=== PATIENT | female | born 1960 | race Hispanic/Latino ===

== ENCOUNTER 2016-11-11 23:30 | Emergency (ER) | payer MEDICAID ==
[2016-11-11 23:30] VITALS: BMI 24.3
[2016-11-12 00:14] VITALS: RESP 16; TEMP 97.9
--- NOTE | 2016-11-12 00:51 | ED PDOC ---
Arrival/HPI - General Chief Complaint: Weakness/Neurological Deficit Time Seen by Provider: 11/12/16 00:26 Historian: Patient - History of Present Illness Narrative History of Present Illness (Text): 11/12/16 00:50 Raya Graff is a 56 year old female, whose past medical history includes gastric ulcers, who presents to the Emergency department complaining of paresthesias to right thigh and a few finger of her left hand for 1 hour. Patient denies any fever, chills, chest pain, shortness of breath, nausea, vomiting, diarrhea, neck pain, headache, dizziness, focal weakness, vision changes, or any other complaints. Symptom Onset: Gradual Symptom Course: Unchanged Activities at Onset: Light Context: Home Past Medical History - Provider Review Nursing Documentation Reviewed: Yes - Tetanus Immunization Tetanus Immunization: Unknown - Past Medical History Past Medical History: No Previous - Gastrointestinal Hx Gastrointestinal Ulcer: Yes Other/Comment: bleeding ulcer - Psychiatric Hx Substance Use: No - Past Surgical History Past Surgical History: No Previous - Anesthesia Hx Anesthesia Reactions: No Hx Malignant Hyperthermia: No - Suicidal Assessment Feels Threatened In Home Enviroment: No Family/Social History - Physician Review Nursing Documentation Reviewed: Yes Family/Social History: Unknown Family HX Smoking Status: Heavy Smoker > 10 Cigarettes Daily Hx Alcohol Use: Yes Frequency of alcohol use: Socially Hx Substance Use: No Hx Substance Use Treatment: No Allergies/Home Meds Allergies/Adverse Reactions: Allergies No Known Allergies Allergy (Verified 02/21/14 19:16) Home Medications: Home Meds Medication Instructions Recorded Confirmed No Known Home Med 11/12/16 11/12/16 Review of Systems - Physician Review All systems were reviewed & negative as marked: Yes - Review of Systems Constitutional: Normal. absent: Fevers Eyes: Normal ENT: Normal Respiratory: Normal. absent: SOB, Cough Cardiovascular: Normal. absent: Chest Pain Gastrointestinal: Normal. absent: Abdominal Pain, Diarrhea, Nausea, Vomiting Genitourinary Female: Normal. absent: Dysuria, Frequency, Hematuria, Urine Output Changes Musculoskeletal: Normal. absent: Back Pain, Neck Pain Skin: Normal. absent: Rash Neurological: Other (+paresthesias). absent: Headache, Dizziness Endocrine: Normal Hemo/Lymphatic: Normal Psychiatric: Normal Physical Exam Vital Signs Reviewed: Yes Vital Signs Temp Pulse Resp BP Pulse Ox 11/12/16 03:10 72 16 110/87 98 11/12/16 00:13 97.9 F 74 16 105/56 L 97 Temperature: Afebrile Blood Pressure: Normal Pulse: Regular Respiratory Rate: Normal Appearance: Positive for: Well-Appearing, Non-Toxic, Comfortable Pain Distress: None Mental Status: Positive for: Alert and Oriented X 3 - Systems Exam Head: Present: Atraumatic, Normocephalic Pupils: Present: PERRL Extroacular Muscles: Present: EOMI Conjunctiva: Present: Normal Mouth: Present: Moist Mucous Membranes Neck: Present: Normal Range of Motion Respiratory/Chest: Present: Clear to Auscultation, Good Air Exchange. No: Respiratory Distress, Accessory Muscle Use Cardiovascular: Present: Regular Rate and Rhythm, Normal S1, S2. No: Murmurs Abdomen: Present: Normal Bowel Sounds. No: Tenderness, Distention, Peritoneal Signs Back: Present: Normal Inspection Upper Extremity: Present: Normal Inspection. No: Cyanosis, Edema Lower Extremity: Present: Normal Inspection, NORMAL PULSES, Normal ROM, Neurovascularly Intact, Capillary Refill < 2 s. No: Edema, Jose Francisco's Sign, Tenderness, Swelling, Erythema, Deformity Neurological: Present: GCS=15, CN II-XII Intact, Speech Normal, Motor Func Grossly Intact, Normal Sensory Function, Normal Cerebellar Funct, Gait Normal, Memory Normal Skin: Present: Warm, Dry, Normal Color. No: Rashes Psychiatric: Present: Alert, Oriented x 3, Normal Insight, Normal Concentration Medical Decision Making ED Course and Treatment: 11/12/16 00:50 Impression: 56 year old female complaining of paresthesias to the right thigh and left hand. Differential Diagnosis included but are not limited to: Plan: -- CT Head w/o contrast -- EKG -- Labs, cardiac enzymes -- Reassess and disposition Progress Notes: reviewed EKG, sinus bradycardia at [address]-segment elevations or depressions, no T-wave inversions, normal intervals. 11/12/16 02:00 Reviewed radiology, CT Head shows: Brain: No intracranial hemorrhage. No mass. No definite edema. Ventricles: No hydrocephalus. Bones/joints: No acute fracture. Soft tissues: Unremarkable. Sinuses: No acute sinusitis. Mastoid air cells: No mastoid effusion. Orbits: Unremarkable as visualized. IMPRESSION: 1. No definite acute intracranial abnormality. Acute infarction may be CT occult within first 24 hours. If a focal deficit persists, consider followup CT or MRI for further evaluation. - Lab Interpretations Lab Results: 11/12/16 01:30 11/12/16 01:30 Lab Results 11/12/16 01:30: WBC 6.6, RBC 3.68, Hgb 11.9 L, Hct 34.9 L, MCV 94.8, MCH 32.3, MCHC 34.1, RDW 13.4, Plt Count 127, MPV 11.4 H 11/12/16 01:30: Sodium 139, Potassium 4.1, Chloride 104, Carbon Dioxide 29, Anion Gap 10, BUN 17, Creatinine 1.1, Est GFR ( Amer) > 60, Est GFR (Non- Af Amer) 52, Random Glucose 93, Calcium 8.9, Total Bilirubin 0.3, AST 28, ALT 25 , Alkaline Phosphatase 59, Lactate Dehydrogenase 458, Total Creatine Kinase 83, Troponin I < 0.01, Total Protein 6.7, Albumin 4.0, Globulin 2.7, Albumin/ Globulin Ratio 1.5 11/12/16 01:30: PT 10.3, INR 0.95, APTT 25.7 I have reviewed the lab results: Yes - RAD Interpretation Radiology Orders: 11/12/16 00:50 HEAD W/O CONTRAST [CT] Stat Equalizing Saw Operator: Radiologist - EKG Interpretation Interpreted by ED Physician: Yes Type: 12 lead EKG - Medication Orders Current Medication Orders: Discontinued Medications Ibuprofen (Motrin Tab) 600 mg PO STAT STA Stop: 11/12/16 02:59 Last Admin: 11/12/16 03:09 Dose: 600 mg MAR Pain/Vitals Document 11/12/16 03:09 MS (Rec: 11/12/16 03:10 MS [id number]) Pain Reassessment Is This A Pain ReAssessment? Yes Sleep Is patient sleeping during reassessment? No Presence of Pain Presence of Pain Yes Pain Scale Used Pain Scale Used Numeric Location Pain Location Body Occupational Health Specialist - Scribe Statement The provider has reviewed the documentation as recorded by the Edinson Forbes Provider Scribe Attestation: All medical record entries made by the Scribe were at my direction and personally dictated by me. I have reviewed the chart and agree that the record accurately reflects my personal performance of the history, physical exam, medical decision making, and the department course for this patient. I have also personally directed, reviewed, and agree with the discharge instructions and disposition. Disposition/Present on Arrival - Present on Arrival Any Indicators Present on Arrival: No History of DVT/PE: No History of Uncontrolled Diabetes: No Urinary Catheter: No History of Decub. Ulcer: No History Surgical Site Infection Following: None - Disposition Have Diagnosis and Disposition been Completed?: Yes Diagnosis: Paresthesia Disposition: HOME/ ROUTINE Disposition Time: 02:53 Patient Plan: Discharge Condition: GOOD Discharge Instructions (ExitCare): Paresthesia (ED) Additional Instructions: Follow up with your doctor /neurologist this week Referrals: Marino Almeida MD [Staff Provider] - Follow up with primary Forms: [employer] (Mauritian)
[2016-11-12 01:53] LABS: ALB/GLOB RATIO 1.5 (1.1-1.8); ALKALINE PHOSPHATASE 59 U/L (38-126); ALT/SGPT 25 U/L (7-56); AST/SGOT 28 U/L (14-36); BILIRUBIN,TOTAL 0.3 mg/dL (0.2-1.3); BLOOD UREA NITROGEN 17 mg/dL (7-21); CALCIUM 8.9 mg/dL (8.4-10.5); CARBON DIOXIDE 29 mmol/L (21-33); CHLORIDE 104 mmol/L (98-107); GFR AFRICAN-AMERICAN > 60; GLUCOSE,RANDOM 93 mg/dL (70-110); POTASSIUM 4.1 mmol/L (3.6-5.0); SODIUM 139 mmol/L (132-148); TOTAL PROTEIN 6.7 g/dL (5.8-8.3)
[2016-11-12 01:54] LABS: HEMATOCRIT 34.9 % (36.0-48.0); MEAN CELL VOLUME 94.8 fl (80.0-105.0); MEAN CORPUSCULAR HEMOGLOBIN 32.3 pg (25.0-35.0); MEAN CORPUSCULAR HGB CONC 34.1 g/dl (31.0-37.0); MEAN PLATELET VOLUME 11.4 fl (7.0-11.0); RED CELL DISTRIBUTION WIDTH 13.4 % (11.5-14.5); WHITE BLOOD COUNT 6.6 10^3/ul (4.5-11.0)
--- NOTE | 2016-11-12 01:58 | CT ---
EXAM: CT Head Without Intravenous Contrast CLINICAL HISTORY: 56 years old, female; Signs and symptoms; Weakness, extremity; Additional info: Paresthesias TECHNIQUE: Axial computed tomography images of the head/brain without intravenous contrast. All CT scans at this facility use one or more dose reduction techniques, viz.: automated exposure control; ma/kV adjustment per patient size (including targeted exams where dose is matched to indication; i.e. head); or iterative reconstruction technique. COMPARISON: No relevant prior studies available. FINDINGS: Brain: No intracranial hemorrhage. No mass. No definite edema. Ventricles: No hydrocephalus. Bones/joints: No acute fracture. Soft tissues: Unremarkable. Sinuses: No acute sinusitis. Mastoid air cells: No mastoid effusion. Orbits: Unremarkable as visualized. IMPRESSION: 1. No definite acute intracranial abnormality. Acute infarction may be CT occult within first 24 hours. If a focal deficit persists, consider followup CT or MRI for further evaluation.
[2016-11-12 02:00] LABS: INR 0.95 (0.93-1.08); PARTIAL THROMBOPLASTIN TIME 25.7 Seconds (23.7-30.8)
[2016-11-12 02:05] LABS: TROPONIN I < 0.01 ng/mL
[2016-11-12 03:15] VITALS: BP 110/87; PULSE 72; O2SAT 98
--- NOTE | 2016-11-12 09:18 | CARD ---
APPROVED REPORT EKG Measurement Heart [id number] <Conclusion> Sinus bradycardia Otherwise normal ECG
== END 2016-11-12 03:10 | disposition home or self-care (01) ==
LOC: ED 23:30
DX: R20.9 Unspecified disturbances of skin sensation (principal)

== ENCOUNTER 2017-11-23 13:07 | Observation (INO) | payer MEDICAID ==
[2017-11-23] MEDS ORDERED: Sodium Chloride 0.9% 1,000 ML IV STA (14:07)
--- NOTE | 2017-11-23 14:37 | ED PDOC ---
Arrival/HPI - General Chief Complaint: GI Problem Time Seen by Provider: 11/23/17 13:54 Historian: Patient - History of Present Illness Narrative History of Present Illness (Text): 11/23/17 14:33 57 year old female, whose past medical history includes gastric ulcers, who presents to the Emergency department complaining of multiple episodes of diarrhea. The last few episodes contained bright red blood. Patient notes when she uses the bathroom, she experiences lower abdominal cramps. Patient also notes associated lightheadedness. Patient denies any fevers, chills, chest pain, shortness of breath, nausea, vomiting, back pain, neck pain, urinary symptoms, headache, dizziness, or any other complaint. PMD: none Dental Technician Apprentice: none Symptom Onset: Gradual Symptom Course: Unchanged Activities at Onset: Light Context: Home Past Medical History - Provider Review Nursing Documentation Reviewed: Yes - Infectious Disease Hx of Infectious Diseases: None - Tetanus Immunization Tetanus Immunization: Unknown - Reproductive Menopause: Yes - Past Medical History Past Medical History: No Previous - Cardiac Hx Cardiac Disorders: No - HEENT Hx HEENT Disorder: No - Gastrointestinal Hx Gastrointestinal Ulcer: Yes Other/Comment: bleeding ulcer - Psychiatric Hx Substance Use: No - Past Surgical History Past Surgical History: No Previous - Anesthesia Hx Anesthesia Reactions: No Hx Malignant Hyperthermia: No - Suicidal Assessment Feels Threatened In Home Enviroment: No Family/Social History - Physician Review Nursing Documentation Reviewed: Yes Family/Social History: Unknown Family HX Smoking Status: Heavy Smoker > 10 Cigarettes Daily Hx Alcohol Use: Yes Hx Substance Use: No Hx Substance Use Treatment: No Allergies/Home Meds Allergies/Adverse Reactions: Allergies No Known Allergies Allergy (Verified 02/21/14 19:16) Home Medications: Home Meds Medication Instructions Recorded Confirmed No Known Home Med 11/12/16 11/23/17 Review of Systems - Physician Review All systems were reviewed & negative as marked: Yes - Review of Systems Constitutional: Normal Eyes: Normal ENT: Normal Respiratory: Normal. absent: SOB, Cough Cardiovascular: Normal. absent: Chest Pain Gastrointestinal: Abdominal Pain (lower abdominal cramps), Diarrhea. absent: Nausea, Vomiting Genitourinary Female: Normal. absent: Dysuria, Frequency Musculoskeletal: Normal. absent: Back Pain, Neck Pain Skin: Normal. absent: Rash Neurological: Normal. absent: Headache, Dizziness Endocrine: Normal Hemo/Lymphatic: Normal Psychiatric: Normal Physical Exam Vital Signs Reviewed: Yes Vital Signs Temp Pulse Resp BP Pulse Ox 11/23/17 13:47 98 F 73 18 105/70 99 Temperature: Afebrile Blood Pressure: Normal Pulse: Regular Respiratory Rate: Normal Appearance: Positive for: Well-Appearing, Non-Toxic, Comfortable Pain Distress: None Mental Status: Positive for: Alert and Oriented X 3 - Systems Exam Head: Present: Atraumatic, Normocephalic Pupils: Present: PERRL Extroacular Muscles: Present: EOMI Conjunctiva: Present: Normal Mouth: Present: Moist Mucous Membranes Neck: Present: Normal Range of Motion Respiratory/Chest: Present: Clear to Auscultation, Good Air Exchange. No: Respiratory Distress, Accessory Muscle Use Cardiovascular: Present: Regular Rate and Rhythm, Normal S1, S2. No: Murmurs Abdomen: No: Tenderness, Distention, Peritoneal Signs Back: Present: Normal Inspection Upper Extremity: Present: Normal Inspection. No: Cyanosis, Edema Lower Extremity: Present: Normal Inspection. No: Edema Neurological: Present: GCS=15, CN II-XII Intact, Speech Normal Skin: Present: Warm, Dry, Normal Color. No: Rashes Psychiatric: Present: Alert, Oriented x 3, Normal Insight, Normal Concentration Medical Decision Making ED Course and Treatment: 11/23/17 14:38 Impression: 57 year old female presents to the emergency department complaining of multiple episodes of blood diarrhea r/o GI bleed Plan: -- Labs -- Protonix -- Sodium Chloride -- UA -- Reassess and disposition Progress Notes: Rectal exam performed, chaperoned by Darci, results showed positive coag. Rectal exam was normal. 11/23/17 16:14 Patient had 4 episodes of bloody stool in the ED. Still lightheaded. Spoke with Dr. Lay, who will admit pt to hospitalist. Dr. Campos on consult for GI. - Medication Orders Current Medication Orders: Sodium Chloride (Sodium Chloride 0.9%) 1,000 mls @ 1,000 mls/hr IV .Q1H STA Stop: 11/23/17 15:06 Discontinued Medications Pantoprazole Sodium (Protonix Inj) 40 mg IVP STAT STA Stop: 11/23/17 14:08 - Scribe Statement The provider has reviewed the documentation as recorded by the Scribe Mago Sanderlin All medical record entries made by the Scribe were at my direction and personally dictated by me. I have reviewed the chart and agree that the record accurately reflects my personal performance of the history, physical exam, medical decision making, and the department course for this patient. I have also personally directed, reviewed, and agree with the discharge instructions and disposition. Disposition/Present on Arrival - Present on Arrival Any Indicators Present on Arrival: No History of DVT/PE: No History of Uncontrolled Diabetes: No Urinary Catheter: No History of Decub. Ulcer: No History Surgical Site Infection Following: None - Disposition Have Diagnosis and Disposition been Completed?: Yes Diagnosis: GI bleed Disposition: HOSPITALIZED Disposition Time: 16:10 Patient Plan: Observation Condition: FAIR
[2017-11-23 14:46] LABS: URINE APPEARANCE CLEAR (CLEAR); URINE BILIRUBIN NEGATIVE (NEGATIVE); URINE COLOR YELLOW (YELLOW); URINE GLUCOSE (UA) NEGATIVE (NEGATIVE)
[2017-11-23 14:47] LABS: URINE BLOOD NEGATIVE (NEGATIVE); URINE LEUKOCYTE ESTERASE NEGATIVE Leu/uL (NEGATIVE); URINE PROTEIN NEGATIVE mg/dL (<30 mg/dL); URINE UROBILINOGEN 0.2 E.U./dL (<1 E.U./dL)
[2017-11-23 15:00] LABS: BASO % 0.3 % (0.0-3.0); EOS # 0.1 (0.0-0.7); EOS % 1.5 % (1.5-5.0); GRAN # 6.11 (1.4-6.5); GRAN % 63.4 % (50.0-68.0); HEMOGLOBIN 13.5 g/dL (12.0-16.0); LYMPH # 2.4 (1.2-3.4); LYMPH % 24.6 % (22.0-35.0); MEAN CELL VOLUME 93.2 fl (80.0-105.0); MEAN CORPUSCULAR HEMOGLOBIN 31.8 pg (25.0-35.0); MEAN CORPUSCULAR HGB CONC 34.2 g/dl (31.0-37.0); MEAN PLATELET VOLUME 10.9 fl (7.0-11.0); MONO % 10.2 % (1.0-6.0); RBC 4.24 10^6/uL (3.5-6.1); RED CELL DISTRIBUTION WIDTH 13.4 % (11.5-14.5); WHITE BLOOD COUNT 9.6 10^3/ul (4.5-11.0)
[2017-11-23 15:01] LABS: BASO # 0.03 K/mm3 (0.0-2.0)
[2017-11-23 15:04] LABS: INR 0.94; PROTHROMBIN TIME 10.7 SECONDS (9.4-12.5)
[2017-11-23 15:05] LABS: ALB/GLOB RATIO 1.4 (1.1-1.8); ALBUMIN 4.6 g/dL (3.0-4.8); BLOOD UREA NITROGEN 15 mg/dL (7-21); GFR NON-AFRICAN AMERICAN > 60; LIPASE 104 U/L (23-300)
[2017-11-23 15:10] LABS: ALT/SGPT 19 U/L (7-56); AST/SGOT 24 U/L (14-36)
--- NOTE | 2017-11-23 16:21 | CP.PCM.HP ---
History of Present Illness - History of Present Illness History of Present Illness: PGY-2 H&P medicine note for Dr Lay Mrs Graff is a 57 year old female with a PMHx of signoid ulcer (2010), diverticulitis, internal hemorrhoids who presented to our ED because she had 4 episodes of bloody stool beginning this morning. She stated she woke up this morning with lower abdominal pain and went to the bathroom, had a bowel movement (no straining), and noticed blood in the toilet bowel which was bright red. She had 3 more similar instances of this. She denies taking NSAIDs chronically however she stated she took 3 aspirin yesterday as she had a ear ache. She went to a democrat last night but it was nothing out of the ordinary. She denied lightheadedness, nausea, hematemesis, chest pain. She denied weight loss - in fact she stated she has gained some weight recently. PMD: Cisco Dias (has not seen him yet) PMHx: signoid ulcer (2010), diverticulitis, internal hemorrhoids PSHx: sigmoidoscopy 2010 All: NKA Home Meds: none SocialHx: 25 pack year smoking hx - current smoker, social alcohol drinkers, marijuana use occasional FamHx: Sister from pancreatic cancer Present on Admission - Present on Admission Any Indicators Present on Admission: No Review of Systems - Constitutional Constitutional: absent: Chills, Fever - EENT Eyes: absent: Change in Vision - Cardiovascular Cardiovascular: absent: Chest Pain - Respiratory Respiratory: absent: Dyspnea, Hemoptysis - Gastrointestinal Gastrointestinal: Abdominal Pain, Hematochezia. absent: Bloating, Diarrhea, Dysphagia, Excessive Flatus, Heartburn, Hematemesis - Genitourinary Genitourinary: absent: Dysuria - Musculoskeletal Musculoskeletal: absent: Back Pain - Integumentary Integumentary: absent: Bleeding Lesions Past Patient History - Infectious Disease Hx of Infectious Diseases: None - Tetanus Immunizations Tetanus Immunization: Unknown - Past Social History Smoking Status: Heavy Smoker > 10 Cigarettes Daily - CARDIAC Hx Cardiac Disorders: No - HEENT Hx HEENT Problems: No - GASTROINTESTINAL Other/Comment: bleeding ulcer - PSYCHIATRIC Hx Substance Use: No - ANESTHESIA Hx Anesthesia Reactions: No Hx Malignant Hyperthermia: No Meds Allergies/Adverse Reactions: Allergies Allergy/AdvReac Type Severity Reaction Status Date / Time No Known Allergies Allergy Verified 02/21/14 19:16 Physical Exam - Constitutional Appears: Well, No Acute Distress - Head Exam Head Exam: ATRAUMATIC, NORMAL INSPECTION - Eye Exam Eye Exam: EOMI, Normal appearance, PERRL. absent: Scleral icterus - ENT Exam ENT Exam: Mucous Membranes Moist - Neck Exam Neck exam: Positive for: Normal Inspection - Respiratory Exam Respiratory Exam: Clear to Auscultation Bilateral, NORMAL BREATHING PATTERN. absent: Rales, Rhonchi, Wheezes - Cardiovascular Exam Cardiovascular Exam: REGULAR RHYTHM, +S1, +S2. absent: Tachycardia, JVD, Systolic Murmur - GI/Abdominal Exam GI & Abdominal Exam: Normal Bowel Sounds, Soft, Tenderness. absent: Distended, Firm, Guarding, Hernia Additional comments: Tenderness to deep palpation in lower quadrants - Extremities Exam Extremities exam: Positive for: normal capillary refill, normal inspection, pedal pulses present. Negative for: calf tenderness, pedal edema - Neurological Exam Neurological exam: Alert, CN II-XII Intact, Oriented x3 - Psychiatric Exam Psychiatric exam: Normal Affect, Normal Mood - Skin Skin Exam: Dry, Intact, Warm Results - Vital Signs Recent Vital Signs: Last Vital Signs Temp 98.9 F 11/23/17 14:07 Pulse 86 11/23/17 14:07 Resp 19 11/23/17 14:07 BP 105/70 11/23/17 13:47 Pulse Ox 99 11/23/17 14:07 - Labs Result Diagrams: 11/23/17 14:40 11/23/17 14:40 Labs: Laboratory Results - last 24 hr 11/23/17 11/23/17 11/23/17 14:30 14:40 14:40 WBC 9.6 D RBC 4.24 Hgb 13.5 Hct 39.5 MCV 93.2 MCH 31.8 MCHC 34.2 RDW 13.4 Plt Count 144 MPV 10.9 Gran % 63.4 Lymph % (Auto) 24.6 Hamlin % (Auto) 10.2 H Eos % (Auto) 1.5 Baso % (Auto) 0.3 Gran # 6.11 Lymph # (Auto) 2.4 [place]lin # (Auto) 1.0 H Eos # (Auto) 0.1 Baso # (Auto) 0.03 PT 10.7 INR 0.94 APTT 33.0 Sodium Potassium Chloride Carbon Dioxide Anion Gap BUN Creatinine Est GFR ( Amer) Est GFR (Non-Af Amer) Random Glucose Calcium Magnesium Total Bilirubin AST ALT Alkaline Phosphatase Total Protein Albumin Globulin Albumin/Globulin Ratio Lipase Urine Color Yellow Urine Appearance Clear Urine pH 6.0 Ur Specific L[place]y 1.025 Urine Protein Negative Urine Glucose (UA) Negative Urine Ketones Negative Urine Blood Negative Urine Nitrate Negative Urine Bilirubin Negative Urine Urobilinogen 0.2 Ur Leukocyte Esterase Negative 11/23/17 14:40 WBC RBC Hgb Hct MCV MCH MCHC RDW Plt Count MPV Gran % Lymph % (Auto) Hamlin % (Auto) Eos % (Auto) Baso % (Auto) Gran # Lymph # (Auto) Hamlin # (Auto) Eos # (Auto) Baso # (Auto) PT INR APTT Sodium 138 Potassium 4.4 Chloride 104 Carbon Dioxide 26 Anion Gap 13 BUN 15 Creatinine 0.7 Est GFR ( Amer) > 60 Est GFR (Non-Af Amer) > 60 Random Glucose 90 Calcium 10.0 Magnesium 2.1 Total Bilirubin 0.7 AST 24 ALT 19 Alkaline Phosphatase 56 Total Protein 7.9 Albumin 4.6 Globulin 3.4 Albumin/Globulin Ratio 1.4 Lipase 104 Urine Color Urine Appearance Urine pH Ur Specific [place]y Urine Protein Urine Glucose (UA) Urine Ketones Urine Blood Urine Nitrate Urine Bilirubin Urine Urobilinogen Ur Leukocyte Esterase Assessment & Plan - Assessment and Plan (Free Text) Plan: Mrs Graff is a 57 year old female with a PMHx of signoid ulcer (2010), diverticulitis, internal hemorrhoids who presented to our ED because she had 4 episodes of bloody bowel movement: Bright Red Blood Per Rectum -consult GI, Dr Campos -hgb on admission: 13.5 -type and screen -protonix 40mg ivpb q12h -NS @ 100cc/hr -clear liquid diet and npo after midnight in case there is a procedure by GI in the AM PPX -scd's -anticoagulation contraindicated at this time -GI ppx via protonix iv 40mg q12h -clear liquid diet and npo after midnight in case there is a procedure by GI in the AM
[2017-11-23] MEDS ORDERED: Sodium Chloride 0.9% 100 ML IV SCH (16:30)
[2017-11-23] MEDS: Sodium Chloride 0.9% 1,000 ML IV SCH (19:56)
[2017-11-23 21:34] VITALS: BMI 26.1
[2017-11-23] MEDS: Pantoprazole 40mg/100mL NS 40 MG/100 ML BAG IVPB SCH (22:42)
[2017-11-24 07:05] LABS: BASO # 0.02 K/mm3 (0.0-2.0); BASO % 0.2 % (0.0-3.0); EOS # 0.2 (0.0-0.7); EOS % 2.6 % (1.5-5.0); GRAN # 4.2 (1.4-6.5); GRAN % 51.8 % (50.0-68.0); HEMOGLOBIN 12.2 g/dL (12.0-16.0); LYMPH # 2.9 (1.2-3.4); LYMPH % 35.8 % (22.0-35.0); MEAN CELL VOLUME 94.1 fl (80.0-105.0); MEAN CORPUSCULAR HEMOGLOBIN 31.2 pg (25.0-35.0); MEAN CORPUSCULAR HGB CONC 33.2 g/dl (31.0-37.0); MEAN PLATELET VOLUME 11.6 fl (7.0-11.0); MONO # 0.8 (0.1-0.6); MONO % 9.6 % (1.0-6.0); RBC 3.91 10^6/uL (3.5-6.1); RED CELL DISTRIBUTION WIDTH 13.6 % (11.5-14.5); WHITE BLOOD COUNT 8.1 10^3/ul (4.5-11.0)
[2017-11-24 07:33] LABS: ALB/GLOB RATIO 1.3 (1.1-1.8); ALBUMIN 3.6 g/dL (3.0-4.8); ALT/SGPT 17 U/L (7-56); AST/SGOT 17 U/L (14-36); BLOOD UREA NITROGEN 15 mg/dL (7-21); CALCIUM 8.8 mg/dL (8.4-10.5); GFR NON-AFRICAN AMERICAN > 60
[2017-11-24] MEDS: Sodium Chloride 0.9% 1,000 ML IV SCH ×2 (08:39→11:22)
[2017-11-24] MEDS: Pantoprazole 40mg/100mL NS 40 MG/100 ML BAG IVPB SCH ×2 (10:44→21:22)
--- NOTE | 2017-11-24 13:00 | CARD ---
APPROVED REPORT Date of service: 11/23/2017 EKG Measurement Heart [id number] CT [id number] <Conclusion> Normal sinus rhythm Normal ECG
--- NOTE | 2017-11-24 17:25 | CON ---
the toilet DATE: 11/24/2017 HISTORY OF PRESENT ILLNESS: I saw Ms. Graff this morning. She is a 57-year-old white female with past medical history of a sigmoid ulcer diagnosed in 2010. The patient otherwise has no significant GI history except for diverticulosis and internal hemorrhoids. The patient has had no biliary procedures and still has her appendix. She takes no medications at home. The patient indicated normal bowel movements prior to the attendance at a barbecue about a day and a half ago, after which her symptoms started. [facility] hours [facility], the patient started to experience left lower quadrant abdominal cramping and diarrhea. The diarrhea went on multiple times, soft, brown color and subsequently after many bowel movements, she noticed some blood streaking and some blood in toilet. This was associated with some cramping sensations in the right lower and left lower quadrant. There is no nausea and vomiting with this or fevers. PHYSICAL EXAMINATION: VITAL SIGNS: I reviewed the patient's vital signs. HEENT: Noncontributory. LUNGS: Clear to auscultation. HEART: Regular rhythm. ABDOMEN: Soft. No tenderness elicited in any quadrant. LABORATORY DATA: Significant for white count of 9000 with an H and H of 13 and 39. INR is within normal limits. Chemistry is noncontributory. OVERALL ASSESSMENT: This is a 57-year-old white female, healthy up to the time for admission for the current problem. This patient's past medical history is significant for a sigmoid ulcer from unknown etiology. She has not had an updated colonoscopy since 2010, which should be performed on the outpatient basis. At which the current time point, diagnosis appears to be a gastroenteritis, probably food related and the patient is significantly improved this morning. I spoke to the nurse about this on the floor and the plan would be probable advanced diet with small portions of cereal residue and consider discharge sometime later today. The patient should follow up with her primary care doctor and consider to have an outpatient colonoscopy at a later date. The patient should exercise dietary discretion due to probable irritable bowel syndrome type symptoms due to gastroenteritis. Yonathan Campos DO, PhD [facility] # [id number] MTDD
[2017-11-25 06:01] VITALS: RESP 18; O2SAT 99
--- NOTE | 2017-11-25 06:12 | CP.PCM.PN ---
Subjective - Date & Time of Evaluation Date of Evaluation: 11/24/17 Time of Evaluation: 10:00 - Subjective Subjective: INTERNAL MEDICINE PROGRESS NOTE FOR DR. ANATOLY Sharpe D.O. PGY-1 Objective - Vital Signs/Intake and Output Vital Signs (last 24 hours): Temp Pulse Resp BP Pulse Ox 98.5 F 60 18 108/68 99 11/25/17 06:00 11/25/17 06:00 11/25/17 06:00 11/25/17 06:00 11/25/17 06:00 Intake and Output: 11/24/17 11/25/17 18:59 06:59 Intake Total 1700 120 Balance 1700 120 - Medications Medications: Current Medications Acetaminophen (Tylenol 325mg Tab) 650 mg PO Q6H PRN PRN Reason: Pain, Mild (1-3) Last Admin: 11/24/17 20:24 Dose: 650 mg Pantoprazole Sodium (Protonix 40mg Ivpb) 40 mg in 100 mls @ 200 mls/hr IVPB Q12H [place] Last Admin: 11/24/17 21:22 Dose: 200 mls/hr - Labs Labs: 11/24/17 06:30 11/24/17 06:30 PT 10.7 SECONDS (9.4-12.5) 11/23/17 14:40 INR 0.94 11/23/17 14:40 APTT 33.0 Seconds (25.1-36.5) 11/23/17 14:40
--- NOTE | 2017-11-25 06:13 | CP.PCM.PN ---
Subjective - Date & Time of Evaluation Date of Evaluation: 11/25/17 Time of Evaluation: 06:13 - Subjective Subjective: INTERNAL MEDICINE PROGRESS NOTE FOR DR. ANATOLY Sharpe D.O. PGY-1 Objective - Vital Signs/Intake and Output Vital Signs (last 24 hours): Temp Pulse Resp BP Pulse Ox 98.5 F 60 18 108/68 99 11/25/17 06:00 11/25/17 06:00 11/25/17 06:00 11/25/17 06:00 11/25/17 06:00 Intake and Output: 11/24/17 11/25/17 18:59 06:59 Intake Total 1700 120 Balance 1700 120 - Medications Medications: Current Medications Acetaminophen (Tylenol 325mg Tab) 650 mg PO Q6H PRN PRN Reason: Pain, Mild (1-3) Last Admin: 11/24/17 20:24 Dose: 650 mg Pantoprazole Sodium (Protonix 40mg Ivpb) 40 mg in 100 mls @ 200 mls/hr IVPB Q12H [place] Last Admin: 11/24/17 21:22 Dose: 200 mls/hr - Labs Labs: 11/24/17 06:30 11/24/17 06:30 PT 10.7 SECONDS (9.4-12.5) 11/23/17 14:40 INR 0.94 11/23/17 14:40 APTT 33.0 Seconds (25.1-36.5) 11/23/17 14:40
[2017-11-25 07:01] LABS: ALB/GLOB RATIO 1.3 (1.1-1.8); ALBUMIN 3.7 g/dL (3.0-4.8); ALT/SGPT 14 U/L (7-56); AST/SGOT 15 U/L (14-36); BLOOD UREA NITROGEN 12 mg/dL (7-21); CALCIUM 8.8 mg/dL (8.4-10.5); GFR NON-AFRICAN AMERICAN > 60
[2017-11-25 07:06] LABS: BASO # 0.02 K/mm3 (0.0-2.0); BASO % 0.3 % (0.0-3.0); EOS # 0.3 (0.0-0.7); EOS % 3.4 % (1.5-5.0); GRAN # 3.44 (1.4-6.5); GRAN % 46.7 % (50.0-68.0); HEMOGLOBIN 12.1 g/dL (12.0-16.0); LYMPH % 41.2 % (22.0-35.0); MEAN CELL VOLUME 92.9 fl (80.0-105.0); MEAN CORPUSCULAR HEMOGLOBIN 31.7 pg (25.0-35.0); MEAN CORPUSCULAR HGB CONC 34.1 g/dl (31.0-37.0); MEAN PLATELET VOLUME 11.7 fl (7.0-11.0); MONO # 0.6 (0.1-0.6); MONO % 8.4 % (1.0-6.0); RBC 3.82 10^6/uL (3.5-6.1); RED CELL DISTRIBUTION WIDTH 13.4 % (11.5-14.5); WHITE BLOOD COUNT 7.4 10^3/ul (4.5-11.0)
--- NOTE | 2017-11-25 07:49 | PN ---
DATE: 11/25/2017 SUBJECTIVE: I saw Ms. Graff this morning. She is a 57-year-old white female, admitted with complaints of nausea, vomiting, abdominal pain, diarrhea after attending a [facility]. Symptomatically, the patient has improved substantially. She is on conservative treatment with no evidence of rectal bleeding. The bowel movements have normalized to some extent; however, the patient still complains about small amount of cramping sensation in the left lower quadrant as well as some urgency. This has improved dramatically relative to the time of admission. PHYSICAL EXAMINATION: VITAL SIGNS: I reviewed this patient's vital signs. HEENT: Noncontributory. LUNGS: Clear to auscultation. HEART: Regular rate and rhythm. ABDOMEN: Soft. No tenderness elicited anywhere. The abdomen is decompressed. Bowel sounds still mildly irregular. LABORATORY DATA: I reviewed all the patient's blood work and the CBC and the CMP are noncontributory. OVERALL ASSESSMENT: A 57-year-old white female with probable gastroenteritis secondary to [facility]. Note that she will experience some bowel sensitivity for several more days after gastroenteritis. I do not feel this is any acute colitis issue at the current time point since the patient has made dramatic progress tolerating small amount of low-fiber diet. At bedside, I reviewed dietary discretion issues and also I emphasized to her that she needs an updated colonoscopy since the last procedure was in 2010. The patient should be able to go home later on today after evaluated by house staff. Yonathan Campos DO, PhD FRANCINE
[2017-11-25] MEDS: Pantoprazole 40mg/100mL NS 40 MG/100 ML BAG IVPB SCH (11:11)
[2017-11-25 13:09] VITALS: BP 90/53; PULSE 68; TEMP 99
--- NOTE | 2017-11-25 19:28 | CP.PCM.PN ---
<Carmita Sharpe - Last Filed: 11/25/17 19:32> Subjective - Date & Time of Evaluation Date of Evaluation: 11/24/17 Time of Evaluation: 11:00 - Subjective Subjective: INTERNAL MEDICINE PROGRESS NOTE FOR DR. ANATOLY Sharpe D.O. PGY-1 Pt seen and examined at bedside this am. Pt report she is still having some cramping abdominal pain. She denies any episodes of hematochezia. She denies fevers, chills, headaches, dizziness, chest pain, palpitations, shortness of breath, nausea, vomiting, constipation, diarrhea, dysuria. Objective - Vital Signs/Intake and Output Vital Signs (last 24 hours): Temp Pulse Resp BP Pulse Ox 99 F 68 18 90/53 L 99 11/25/17 12:00 11/25/17 12:00 11/25/17 12:00 11/25/17 12:00 11/25/17 06:00 Intake and Output: 11/25/17 11/26/17 18:59 06:59 Intake Total 620 Balance 620 - Labs Labs: 11/25/17 06:00 11/25/17 06:00 PT 10.7 SECONDS (9.4-12.5) 11/23/17 14:40 INR 0.94 11/23/17 14:40 APTT 33.0 Seconds (25.1-36.5) 11/23/17 14:40 - Constitutional Appears: Well, Non-toxic, No Acute Distress - Head Exam Head Exam: ATRAUMATIC, NORMAL INSPECTION - Eye Exam Eye Exam: EOMI, Normal appearance - ENT Exam ENT Exam: Mucous Membranes Moist, Normal Exam - Neck Exam Neck Exam: Normal Inspection. absent: Meningismus - Respiratory Exam Respiratory Exam: Clear to Ausculation Bilateral, NORMAL BREATHING PATTERN - Cardiovascular Exam Cardiovascular Exam: REGULAR RHYTHM, +S1, +S2 - GI/Abdominal Exam GI & Abdominal Exam: Soft. absent: Tenderness - Extremities Exam Extremities Exam: Normal Inspection. absent: Calf Tenderness - Back Exam Back Exam: NORMAL INSPECTION. absent: CVA tenderness (L), CVA tenderness (R) - Psychiatric Exam Psychiatric exam: Normal Affect, Normal Mood - Skin Skin Exam: Dry, Intact, Warm Assessment and Plan - Assessment and Plan (Free Text) Assessment: Mrs Graff is a 57 year old female with a PMHx of signoid ulcer (2010), diverticulitis, internal hemorrhoids who presented to [facility] [place] with 4 episodes of bloody bowel movements. Pt admitted for evaluation and treatment of GI bleed. Plan: Bright Red Blood Per Rectum consult GI, Dr Campos. Appreciate recs hgb on admission: 13.5 type and screen start protonix 40mg ivpb q12h start NS @ 100cc/hr clear liquid diet and npo after midnight in case there is a procedure by GI in the AM PPX -scd's -anticoagulation contraindicated at this time -GI ppx via protonix iv 40mg q12h -clear liquid diet and npo after midnight in case there is a procedure by GI in the AM <Parris Zuñiga R - Last Filed: 11/27/17 07:04> Objective - Vital Signs/Intake and Output Vital Signs (last 24 hours): Temp Pulse Resp BP Pulse Ox 99 F 68 18 90/53 L 99 11/25/17 12:00 11/25/17 12:00 11/25/17 12:00 11/25/17 12:00 11/25/17 06:00 - Labs Labs: 11/25/17 06:00 11/25/17 06:00 PT 10.7 SECONDS (9.4-12.5) 11/23/17 14:40 INR 0.94 11/23/17 14:40 APTT 33.0 Seconds (25.1-36.5) 11/23/17 14:40 Attending/Attestation - Attestation I have personally seen and examined this patient.: Yes I have fully participated in the care of the patient.: Yes I have reviewed all pertinent clinical information, including history, physical exam and plan: Yes Notes (Text): Patient seen and examined by me with resident at 11:40 AM on 11/24/17 with resident. Case including discharge plan discussed with resident. Agree with above with following additions/corrections. Patient is a 57-year-old female with past medical history significant for ulcer, diverticulitis, and internal hemorrhoids presented to the emergency room with 4 episodes of bloody stool. Patient states she is feeling okay. Feels a little better. States she is still having some bloody bowel movements and abdominal cramping. No nausea or vomiting. Patient is tolerating diet. She denies any headaches, dizziness, lightheadedness, or change in vision. No chest pain or palpitations. No shortness of breath. No fevers or chills. No dysuria. Physical exam: Gen: Awake and alert sitting and lying in bed in no acute distress HEENT: Normocephalic, atraumatic. Extraocular muscles intact, pupils equal reactive. No scleral icterus. Oropharynx is pink and moist. No pharyngeal erythema or exudate appreciated. Neck is supple. Cardiovascular: Normal rhythm. Normal S1, S2. No murmurs, rubs, or gallops appreciated Pulmonary: Normal respiratory effort. No rhonchi, rales, or wheezing appreciated. Gastrointestinal: Soft. Nondistended. Positive generalized tenderness. Positive bowel sounds all 4 quadrants, no guarding. Musculoskeletal: Normal range of motion all extremities. No edema appreciated. No calf tenderness. Central nervous system: AAO x 3. CN2-12 grossly intact. Dermatologic: Skin warm and dry. Assessment and plan: Patient is a 57-year-old female with past medical history significant for ulcer, diverticulitis, and internal hemorrhoids presented to the emergency room with 4 episodes of bloody stool. 1. Rectal bleeding. Abdominal cramps. Likely gastroenteritis. GI following, recommendations appreciated. Advance diet with small portions per GI. H&H stable. Continue IV fluids. Continue protonix. Patient will need outpatient colonoscopy. 2. Hypotension. Continue IV fluids. Patient asymptomatic. Continue to monitor. Case discussed in detail with patient regarding current diagnosis and treatment plan.
--- NOTE | 2017-11-25 19:40 | CP.PCM.DIS ---
Provider - Provider Date of Admission: 11/23/17 16:03 Attending physician: Parris Zuñiga DO Primary care physician: NO FAMILY PROVIDER Consults: GI: Dr. Campos Time Spent in preparation of Discharge (in minutes): 45 Hospital Course - Lab Results Lab Results: Most Recent Lab Values WBC 7.4 10^3/ul (4.5-11.0) 11/25/17 06:00 RBC 3.82 10^6/uL (3.5-6.1) 11/25/17 06:00 Hgb 12.1 g/dL (12.0-16.0) 11/25/17 06:00 Hct 35.5 % (36.0-48.0) L 11/25/17 06:00 MCV 92.9 fl (80.0-105.0) 11/25/17 06:00 MCH 31.7 pg (25.0-35.0) 11/25/17 06:00 MCHC 34.1 g/dl (31.0-37.0) 11/25/17 06:00 RDW 13.4 % (11.5-14.5) 11/25/17 06:00 Plt Count 132 10^3/uL (120.0-450.0) 11/25/17 06:00 MPV 11.7 fl (7.0-11.0) H 11/25/17 06:00 Gran % 46.7 % (50.0-68.0) L 11/25/17 06:00 Lymph % (Auto) 41.2 % (22.0-35.0) H 11/25/17 06:00 [place] % (Auto) 8.4 % (1.0-6.0) H 11/25/17 06:00 Eos % (Auto) 3.4 % (1.5-5.0) 11/25/17 06:00 Baso % (Auto) 0.3 % (0.0-3.0) 11/25/17 06:00 Gran # 3.44 (1.4-6.5) 11/25/17 06:00 Lymph # (Auto) 3.0 (1.2-3.4) 11/25/17 06:00 [place] # (Auto) 0.6 (0.1-0.6) 11/25/17 06:00 Eos # (Auto) 0.3 (0.0-0.7) 11/25/17 06:00 Baso # (Auto) 0.02 K/mm3 (0.0-2.0) 11/25/17 06:00 PT 10.7 SECONDS (9.4-12.5) 11/23/17 14:40 INR 0.94 11/23/17 14:40 APTT 33.0 Seconds (25.1-36.5) 11/23/17 14:40 Sodium 141 mmol/L (132-148) 11/25/17 06:00 Potassium 3.9 mmol/L (3.6-5.0) 11/25/17 06:00 Chloride 108 mmol/L (98-107) H 11/25/17 06:00 Carbon Dioxide 27 mmol/L (21-33) 11/25/17 06:00 Anion Gap 11 (10-20) 11/25/17 06:00 BUN 12 mg/dL (7-21) 11/25/17 06:00 Creatinine 0.7 mg/dl (0.7-1.2) 11/25/17 06:00 Est GFR ( Amer) > 60 11/25/17 06:00 Est GFR (Non-Af Amer) > 60 11/25/17 06:00 Random Glucose 103 mg/dL (70-110) 11/25/17 06:00 Calcium 8.8 mg/dL (8.4-10.5) 11/25/17 06:00 Magnesium 2.1 mg/dL (1.7-2.2) 11/23/17 14:40 Total Bilirubin 0.2 mg/dL (0.2-1.3) 11/25/17 06:00 AST 15 U/L (14-36) 11/25/17 06:00 ALT 14 U/L (7-56) 11/25/17 06:00 Alkaline Phosphatase 47 U/L (38-126) 11/25/17 06:00 Total Protein 6.6 g/dL (5.8-8.3) 11/25/17 06:00 Albumin 3.7 g/dL (3.0-4.8) 11/25/17 06:00 Globulin 2.9 gm/dL 11/25/17 06:00 Albumin/Globulin Ratio 1.3 (1.1-1.8) 11/25/17 06:00 Lipase 104 U/L (23-300) 11/23/17 14:40 Urine Color Yellow (YELLOW) 11/23/17 14:30 Urine Appearance Clear (CLEAR) 11/23/17 14:30 Urine pH 6.0 (4.7-8.0) 11/23/17 14:30 Ur Specific [place] 1.025 (1.005-1.035) 11/23/17 14:30 Urine Protein Negative mg/dL (<30 mg/dL) 11/23/17 14:30 Urine Glucose (UA) Negative mg/dL (NEGATIVE) 11/23/17 14:30 Urine Ketones Negative mg/dL (NEGATIVE) 11/23/17 14:30 Urine Blood Negative (NEGATIVE) 11/23/17 14:30 Urine Nitrate Negative (NEGATIVE) 11/23/17 14:30 Urine Bilirubin Negative (NEGATIVE) 11/23/17 14:30 Urine Urobilinogen 0.2 E.U./dL (<1 E.U./dL) 11/23/17 14:30 Ur Leukocyte Esterase Negative Sujit/uL (NEGATIVE) 11/23/17 14:30 Blood Type B NEGATIVE 11/23/17 14:40 Antibody Screen Negative 11/23/17 14:40 BBK History Checked No verified bt 11/23/17 14:40 - Hospital Course Hospital Course: Mrs Graff is a 57 year old female with a PMHx of signoid ulcer (2010), diverticulitis, internal hemorrhoids who presented to [facility] [place] 4 episodes of bloody bowel movements. Pt admitted for evaluation and treatment of GI bleed. Pt was started on protonix drip along with NS fluids. GI was consult for evaluation. GI had determined the pt most likely had colitis from the food she had most recently ate at the [facility] she was at. He recommended advancing diet as tolerated and following up in the outpatient setting for a repeat colonoscopy as the pt hasn't had once since 2010. Pt's symptoms had improved throughout the hospital stay, and reported no complaints prior to discharge. Discharge Exam - Head Exam Head Exam: ATRAUMATIC, NORMAL INSPECTION - Eye Exam Eye Exam: EOMI, Normal appearance - ENT Exam ENT Exam: Mucous Membranes Moist, Normal Exam - Neck Exam Neck exam: Normal Inspection - Respiratory Exam Respiratory Exam: NORMAL BREATHING PATTERN, UNREMARKABLE - Cardiovascular Exam Cardiovascular Exam: REGULAR RHYTHM, +S1, +S2 - GI/Abdominal Exam GI & Abdominal Exam: Normal Bowel Sounds, Soft. absent: Distended, Guarding, Rebound, Rigid, Tenderness - Extremities Exam Extremities exam: normal inspection - Back Exam Back exam: NORMAL INSPECTION - Neurological Exam Neurological exam: Alert, CN II-XII Intact, Oriented x3 - Psychiatric Exam Psychiatric exam: Normal Affect, Normal Mood - Skin Skin Exam: Dry, Intact, Warm Discharge Plan - Follow Up Plan Condition: FAIR Disposition: HOME/ ROUTINE Instructions: Smoking: Not Just Harmful to Your Lungs and Heart, Diarrhea and Traveler's Diarrhea, Adult (DC), Gastrointestinal Bleeding (DC), Quitting Smoking, Bloody Stools, Adult (DC) Additional Instructions: Please follow your primary care doctor, Dr. Dias, within 3-5 days of discharge. Please follow up with a perfect bind machine operator of your choice within two weeks of discharge to establish care and schedule a colonoscopy. This should be done in 10-14 days to allow your colon to get better first. The contact information for the perfect bind machine operator that saw you while you were admitted has been provided in this paperwork. Our perfect bind machine operator has recommended that you advance your diet slowly from soft foods with low fiber as discussed. You may alternate soft food meals with liquid meals as necessary if your cramping continues. You may take over the counter Tylenol for pain associated with cramping. Please be aware of dosing recommendations listed on over the counter Tylenol. Should your symptoms return, please return to nearest emergency room for evaluation. Referrals: FAMILY PROVIDER,NO [Primary Care Provider] - Cisco Dias MD [Staff Provider] - Yonathan Campos DO [Staff Provider] -
== END 2017-11-25 15:14 | disposition home or self-care (01) ==
LOC: ED 13:07 → ERH 16:03 → 2RNO 19:15
PROVIDERS: ADMIT Internal Medicine; ATTEND Hospitalist
DX: K52.9 Noninfective gastroenteritis and colitis, unspecified (principal); F12.90 Cannabis use, unspecified, uncomplicated; F17.210 Nicotine dependence, cigarettes, uncomplicated; Z87.11 Personal history of peptic ulcer disease; Z80.0 Family history of malignant neoplasm of digestive organs; Z87.19 Personal history of other diseases of the digestive system; I95.9 Hypotension, unspecified
CPT/HCPCS: 36415; 80053; 81003; 83690; 83735; 85025; 85610; 85730; 86850; 86900; 93005; 96361; 96365; 96366; 96375; 96376; 99285; C9113; G0378; J7030

== ENCOUNTER 2018-02-04 15:37 | Emergency (ER) | payer MEDICAID ==
[2018-02-04 15:40] VITALS: BMI 24.3
[2018-02-04 15:43] VITALS: RESP 18; O2SAT 100
[2018-02-04] MEDS ORDERED: Sodium Chloride 0.9% 1,000 ML IV STA (15:50)
--- NOTE | 2018-02-04 15:54 | ED PDOC ---
Arrival/HPI - General Chief Complaint: Dizziness/Lightheaded Time Seen by Provider: 02/04/18 15:38 Historian: Patient - History of Present Illness Narrative History of Present Illness (Text): 02/04/18 15:50 57yo female with no significant pmhx who present with complaint of dizziness x 3days. She described dizziness as lightheadedness. Admits to left sided mild left sided frontal headache. He denies fever, URI symptoms, tinnitus, chest pain, SOB, diaphoresis, nausea, vomiting, focal weakness, abdominal pain, urinary symptoms, melena, hematemesis, cough, any other complaint. Past Medical History - Provider Review Nursing Documentation Reviewed: Yes - Infectious Disease Hx of Infectious Diseases: None - Tetanus Immunization Tetanus Immunization: Unknown - Past Medical History Past Medical History: No Previous - Cardiac Hx Cardiac Disorders: No - Pulmonary Hx Respiratory Disorders: No - Neurological Hx Neurological Disorder: No - HEENT Hx HEENT Disorder: No - Renal Hx Renal Disorder: No - Endocrine/Metabolic Hx Endocrine Disorders: No - Hematological/Oncological Hx Blood Disorders: No - Integumentary Hx Dermatological Disorder: No - Musculoskeletal/Rheumatological Hx Falls: No - Gastrointestinal Hx Gastrointestinal Disorders: Yes (rectal bleeding 11-23-17) Hx Gastrointestinal Ulcer: Yes Other/Comment: bleeding ulcer - Genitourinary/Gynecological Hx Genitourinary Disorders: No - Psychiatric Hx Substance Use: Yes (marijuana) - Past Surgical History Past Surgical History: No Previous - Anesthesia Hx Anesthesia Reactions: No Hx Malignant Hyperthermia: No - Suicidal Assessment Feels Threatened In Home Enviroment: No Family/Social History - Physician Review Nursing Documentation Reviewed: Yes Family/Social History: Unknown Family HX Smoking Status: Heavy Smoker > 10 Cigarettes Daily Hx Alcohol Use: Yes Frequency of alcohol use: Socially Hx Substance Use: Yes (marijuana) Hx Substance Use Treatment: No Allergies/Home Meds Allergies/Adverse Reactions: Allergies No Known Allergies Allergy (Verified 02/21/14 19:16) Home Medications: Home Meds Medication Instructions Recorded Confirmed RX: No Known Home Med 11/12/16 02/04/18 Review of Systems - Physician Review All systems were reviewed & negative as marked: Yes - Review of Systems Constitutional: Normal Eyes: Normal ENT: Normal Respiratory: Normal Cardiovascular: Normal Gastrointestinal: Normal Genitourinary Female: Normal Musculoskeletal: Normal Skin: Normal Neurological: Headache, Dizziness. absent: Focal Weakness, Gait Changes, Speech Changes, Facial Droop Endocrine: Normal Hemo/Lymphatic: Normal Psychiatric: Normal Physical Exam Vital Signs Reviewed: Yes Vital Signs Temp Pulse Resp BP Pulse Ox 02/04/18 15:43 97.8 F 88 18 114/74 100 Temperature: Afebrile Blood Pressure: Normal Pulse: Regular Respiratory Rate: Normal Appearance: Positive for: Well-Appearing, Non-Toxic, Comfortable Pain Distress: None Mental Status: Positive for: Alert and Oriented X 3 - Systems Exam Head: Present: Atraumatic, Normocephalic Pupils: Present: PERRL Extroacular Muscles: Present: EOMI Conjunctiva: Present: Normal Mouth: Present: Moist Mucous Membranes Neck: Present: Normal Range of Motion Respiratory/Chest: Present: Clear to Auscultation, Good Air Exchange. No: Respiratory Distress, Accessory Muscle Use Cardiovascular: Present: Regular Rate and Rhythm, Normal S1, S2. No: Murmurs Abdomen: No: Tenderness, Distention, Peritoneal Signs Back: Present: Normal Inspection Upper Extremity: Present: Normal Inspection. No: Cyanosis, Edema Lower Extremity: Present: Normal Inspection. No: Edema Neurological: Present: GCS=15, CN II-XII Intact, Speech Normal, Motor Func Grossly Intact, Normal Sensory Function, Normal Cerebellar Funct, Norm Deep Tendon Reflexes, Gait Normal, Memory Normal, Normal 2Pt Descrimination, Other (No focal neurological deficit) Skin: Present: Warm, Dry, Normal Color. No: Rashes Psychiatric: Present: Alert, Oriented x 3, Normal Insight, Normal Concentration Medical Decision Making ED Course and Treatment: 02/04/18 15:55 57yo female in ED for dizziness and headache x 3days. Labs EKG Head CT 1L NS, Tylenol 02/04/18 19:22 EKG NSR @ 70bpm Head CT IMPRESSION: Normal CT of the Head. Labs was unremarkable. All result was DW the pt. She then mentioned that her dizziness started 2days after hitting her forehead on object. She remained neurologically intact in ED. she was DC and referred to a Neuro. Advised to avoid strenuous activity. - RAD Interpretation Radiology Orders: 02/04/18 15:48 HEAD W/O CONTRAST [CT] Stat Disposition/Present on Arrival - Present on Arrival Any Indicators Present on Arrival: No History of DVT/PE: No History of Uncontrolled Diabetes: No Urinary Catheter: No History of Decub. Ulcer: No History Surgical Site Infection Following: None - Disposition Have Diagnosis and Disposition been Completed?: Yes Diagnosis: Dizziness, Head injury consultation Disposition: HOME/ ROUTINE Disposition Time: 17:30 Patient Plan: Discharge Condition: STABLE Discharge Instructions (ExitCare): Vertigo (a Type of Dizziness) Additional Instructions: Avoid any strenuous activity until cleared by a Neurologist Return to ED or worsening symptoms Referrals: Marino Almeida MD [Staff Provider] - Follow up with primary Forms: Adzuna (Danish)
[2018-02-04 16:31] LABS: BASO # 0.01 K/mm3 (0.0-2.0); BASO % 0.2 % (0.0-3.0); EOS # 0.1 (0.0-0.7); EOS % 1.8 % (1.5-5.0); GRAN # 2.56 (1.4-6.5); HEMOGLOBIN 13.7 g/dL (12.0-16.0); LYMPH # 2.7 (1.2-3.4); LYMPH % 46.7 % (22.0-35.0); MEAN CELL VOLUME 93.9 fl (80.0-105.0); MEAN CORPUSCULAR HEMOGLOBIN 32.1 pg (25.0-35.0); MEAN CORPUSCULAR HGB CONC 34.2 g/dl (31.0-37.0); MEAN PLATELET VOLUME 11.7 fl (7.0-11.0); MONO # 0.4 (0.1-0.6); MONO % 6.3 % (1.0-6.0); RBC 4.27 10^6/uL (3.5-6.1); RED CELL DISTRIBUTION WIDTH 13.2 % (11.5-14.5); WHITE BLOOD COUNT 5.7 10^3/uL (4.5-11.0)
[2018-02-04 16:42] LABS: ALB/GLOB RATIO 1.5 (1.1-1.8); ALBUMIN 4.7 g/dL (3.0-4.8); ALT/SGPT 22 U/L (7-56); AST/SGOT 20 U/L (14-36); BLOOD UREA NITROGEN 10 mg/dL (7-21); CALCIUM 10.1 mg/dL (8.4-10.5); GFR NON-AFRICAN AMERICAN > 60
[2018-02-04 16:53] LABS: TROPONIN I < 0.01 ng/mL
[2018-02-04 16:53] LABS: URINE BILIRUBIN NEGATIVE (NEGATIVE); URINE BLOOD NEGATIVE (NEGATIVE); URINE GLUCOSE (UA) NEGATIVE (NEGATIVE); URINE LEUKOCYTE ESTERASE NEGATIVE Leu/uL (NEGATIVE); URINE PROTEIN NEGATIVE mg/dL (<30 mg/dL); URINE UROBILINOGEN 0.2 E.U./dL (<1 E.U./dL)
[2018-02-04 16:57] LABS: INR 0.93; PARTIAL THROMBOPLASTIN TIME 29.4 Seconds (25.1-36.5); PROTHROMBIN TIME 10.6 SECONDS (9.4-12.5)
[2018-02-04 17:00] LABS: URINE APPEARANCE CLEAR (CLEAR); URINE COLOR STRAW (YELLOW)
--- NOTE | 2018-02-04 17:14 | CT ---
Date of service: 02/04/2018 PROCEDURE: CT HEAD WITHOUT CONTRAST. HISTORY: Headache/dizziness COMPARISON: Comparison made with prior CT scan brain 11/12/2016.. TECHNIQUE: Axial computed tomography images were obtained through the head/brain without intravenous contrast. Radiation dose: Total exam DLP = 852.32 mGy-cm. This CT exam was performed using one or more of the following dose reduction techniques: Automated exposure control, adjustment of the mA and/or kV according to patient size, and/or use of iterative reconstruction technique. FINDINGS: HEMORRHAGE: No intracranial hemorrhage. BRAIN: No mass effect or edema. No atrophy or chronic microvascular ischemic changes. VENTRICLES: Unremarkable. No hydrocephalus. CALVARIUM: Unremarkable. PARANASAL SINUSES: Unremarkable as visualized. No significant inflammatory changes. MASTOID AIR CELLS: Unremarkable as visualized. No inflammatory changes. OTHER FINDINGS: None. IMPRESSION: Normal CT of the Head.
[2018-02-04 17:17] LABS: BARBITURATES, UR NEGATIVE (NEGATIVE); BENZODIAZEPINES, UR NEGATIVE (NEGATIVE); OPIATES, UR NEGATIVE (NEGATIVE); PHENCYCLIDINE, UR NEGATIVE (NEGATIVE)
[2018-02-04 17:19] VITALS: BP 111/63
[2018-02-04 18:05] VITALS: PULSE 68; TEMP 98.2
--- NOTE | 2018-02-05 09:10 | CARD ---
APPROVED REPORT Date of service: 02/04/2018 EKG Measurement Heart [id number] <Conclusion> Normal sinus rhythm LVH by voltage No change
== END 2018-02-04 17:58 | disposition home or self-care (01) ==
LOC: ED 15:37
DX: R42 Dizziness and giddiness (principal); S09.90XA Unspecified injury of head, initial encounter; X58.XXXA Exposure to other specified factors, initial encounter; F17.210 Nicotine dependence, cigarettes, uncomplicated
CPT/HCPCS: 70450; 80053; 80324; 80345; 80346; 80349; 80353; 80358; 80361; 81003; 82550; 83615; 83735; 83992; 84100; 84443; 84484; 85025; 85610; 85730; 93005; 99285; J7030

== ENCOUNTER 2018-02-12 11:33 | Emergency (ER) | payer MEDICAID ==
[2018-02-12 11:47] VITALS: BMI 28.5
[2018-02-12 11:53] VITALS: O2SAT 99
--- NOTE | 2018-02-12 11:53 | ED PDOC ---
Arrival/HPI - General Time Seen by Provider: 02/12/18 11:35 Historian: Patient - History of Present Illness Narrative History of Present Illness (Text): 02/12/18 11:50 57 year old female, whose past medical history includes gastric ulcers, presents to the emergency department complaining of dizziness for the past two weeks. Patient states the present symptoms feels similar to her dizziness from her hospital visit on 02/04/18, she notes the dizziness has been intermittent since her head injury. No headache or further trauma. She notes intermittent dizziness, described as lightheadedness, without vertigo. She notes that since her injury her overall dizziness has improved, however she wants to make sure that everything is ok because it has been close to 10days. She notes that also she did not eat breakfast today and that makes her feel a little dizzy. She denies fevers, chills, headache, chest pain, shortness of breath, dyspnea on exertion, cough, abdominal pain, nausea, vomiting, diarrhea, back pain, neck pain, or any other complaint. Time/Duration: > week Symptom Course: Intermittent Activities at Onset: Light Context: Home Past Medical History - Provider Review Nursing Documentation Reviewed: Yes - Infectious Disease Hx of Infectious Diseases: None - Tetanus Immunization Tetanus Immunization: Unknown - Past Medical History Past Medical History: No Previous - Cardiac Hx Cardiac Disorders: No - Pulmonary Hx Respiratory Disorders: No - Neurological Hx Neurological Disorder: No - HEENT Hx HEENT Disorder: No - Renal Hx Renal Disorder: No - Endocrine/Metabolic Hx Endocrine Disorders: No - Hematological/Oncological Hx Blood Disorders: No - Integumentary Hx Dermatological Disorder: No - Musculoskeletal/Rheumatological Hx Falls: No - Gastrointestinal Hx Gastrointestinal Disorders: Yes (rectal bleeding 11-23-17) Hx Gastrointestinal Ulcer: Yes Other/Comment: bleeding ulcer - Genitourinary/Gynecological Hx Genitourinary Disorders: No - Psychiatric Hx Substance Use: Yes (marijuana) - Past Surgical History Past Surgical History: No Previous - Anesthesia Hx Anesthesia Reactions: No Hx Malignant Hyperthermia: No - Suicidal Assessment Feels Threatened In Home Enviroment: No Family/Social History - Physician Review Nursing Documentation Reviewed: Yes Family/Social History: No Known Family HX Smoking Status: Heavy Smoker > 10 Cigarettes Daily Hx Alcohol Use: Yes Hx Substance Use: Yes (marijuana) Hx Substance Use Treatment: No Allergies/Home Meds Allergies/Adverse Reactions: Allergies No Known Allergies Allergy (Verified 12/27/18 11:53) Home Medications: Home Meds Medication Instructions Recorded Confirmed No Known Home Med 11/12/16 02/12/18 Review of Systems - Physician Review All systems were reviewed & negative as marked: Yes - Review of Systems Constitutional: absent: Fatigue, Weight Change, Fevers Eyes: absent: Vision Changes, Photophobia ENT: absent: Hearing Changes, Tinnitus, TMJ Pain Respiratory: absent: SOB, Cough Cardiovascular: absent: Chest Pain, Palpitations, Edema, Calf Pain, DIEZ Gastrointestinal: absent: Abdominal Pain, Stool Changes, Constipation, Diarrhea, Nausea, Vomiting Genitourinary Female: absent: Dysuria, Frequency, Hematuria, Urine Output Changes Musculoskeletal: absent: Arthralgias, Back Pain, Neck Pain Skin: absent: Rash Neurological: Dizziness. absent: Headache, Focal Weakness, Gait Changes, Speech Changes, Facial Droop, Disequilibrium, Seizure Psychiatric: absent: Anxiety, Depression Physical Exam Vital Signs Reviewed: Yes Temperature: Afebrile Blood Pressure: Normal Pulse: Regular Respiratory Rate: Normal Appearance: Positive for: Well-Appearing, Non-Toxic, Comfortable Pain Distress: None Mental Status: Positive for: Alert and Oriented X 3 - Systems Exam Head: Present: Atraumatic, Normocephalic Pupils: Present: PERRL Extroacular Muscles: Present: EOMI Conjunctiva: Present: Normal Ears: Present: Normal, NORMAL TM Mouth: Present: Moist Mucous Membranes Pharnyx: Present: Normal. No: ERYTHEMA, EXUDATE Neck: Present: Normal Range of Motion Respiratory/Chest: Present: Clear to Auscultation, Good Air Exchange. No: Respiratory Distress, Accessory Muscle Use Cardiovascular: Present: Regular Rate and Rhythm, Normal S1, S2. No: Murmurs Abdomen: No: Tenderness, Distention, Peritoneal Signs Back: Present: Normal Inspection. No: CVA Tenderness Upper Extremity: Present: Normal Inspection. No: Cyanosis, Edema Lower Extremity: Present: Normal Inspection. No: Edema Neurological: Present: GCS=15, CN II-XII Intact, Speech Normal, Motor Func Grossly Intact, Normal Sensory Function, Normal Cerebellar Funct, Gait Normal Skin: Present: Warm, Dry, Normal Color. No: Rashes Psychiatric: Present: Alert, Oriented x 3, Normal Insight, Normal Concentration Medical Decision Making ED Course and Treatment: 02/12/18 11:51 Impression: 57 year old female who presents to the emergency department complaining of dizziness. No DURAN. No worsening dizziness. Dizziness is a lightheadedness which has improved since she initially had head trauma. Normal neuro exam on eval. Likely post-concussive syndrome, improving. Has not seen her Neurologist yet. No meningeal signs or paraspinal pain Plan: -- Labs -- Reassess and disposition Prior Visits: Notes and results from previous visits were reviewed. Progress Notes: 02/12/18 12:31 EKG reviewed, shows: NSR at 54 BPM. No stemi. 02/12/18 13:16 labs unremarkable pt notes that feeling much better after eating, feeling less dizzy. Neuro exam remains unremarkable pt walking well clear for d/c home, given return indications and f/u as well as education regarding post-concussion syndrome. 02/12/18 13:20 - Lab Interpretations I have reviewed the lab results: Yes - Scribe Statement The provider has reviewed the documentation as recorded by the Edinson Villarreal Provider Scribe Attestation: All medical record entries made by the Scribe were at my direction and personal ly dictated by me. I have reviewed the chart and agree that the record accurately reflects my personal performance of the history, physical exam, medical decision making, and the department course for this patient. I have also personally directed, reviewed, and agree with the discharge instructions and disposition. Disposition/Present on Arrival - Present on Arrival Any Indicators Present on Arrival: No History of DVT/PE: No History of Uncontrolled Diabetes: No Urinary Catheter: No History Surgical Site Infection Following: None - Disposition Have Diagnosis and Disposition been Completed?: Yes Diagnosis: Concussion Disposition: HOME/ ROUTINE Disposition Time: 13:19 Patient Problems: Current Active Problems Problem Status Onset Concussion Acute Condition: GOOD Discharge Instructions (ExitCare): Concussion, Adult (DC) Additional Instructions: ENRIQUETA BROWN, thank you for letting us take care of you today. Your provider was Will Suarez and you were treated for DIZZY. The emergency medical care you received today was directed at your acute symptoms. If you were prescribed any medication, please fill it and take as directed. It may take several days for your symptoms to resolve. Return to the Emergency Department if your symptoms worsen, do not improve, or if you have any other problems. Please contact your doctor or call one of the physicians/clinics you have been referred to that are listed on the Patient Visit Information form that is included in your discharge packet. Bring any paperwork you were given at discharge with you along with any medications you are taking to your follow up visit. Our treatment cannot replace ongoing medical care by a primary care provider outside of the emergency department. Thank you for allowing the [facility] team to be part of your care today. If you had an X-Ray or CT scan: A Radiologist will review the ED reading if any change in treatment is needed we will contact you. If you had a blood, urine, or wound culture: It will take several days for the results, if any change in treatment is needed we will contact you. If you had an STI test: It will take 48 hours for the results. Please call after 1 week if you have not heard back. Referrals: Terra Santana MD [Staff Provider] - Follow up with primary Cisco Dias MD [Family Provider] - Follow up with primary
[2018-02-12 12:17] LABS: BASO # 0.04 K/mm3 (0.0-2.0); BASO % 0.7 % (0.0-3.0); EOS # 0.2 (0.0-0.7); EOS % 3.6 % (1.5-5.0); GRAN # 2.5 (1.4-6.5); GRAN % 40.7 % (50.0-68.0); HEMOGLOBIN 13.3 g/dL (12.0-16.0); LYMPH # 2.9 (1.2-3.4); LYMPH % 46.9 % (22.0-35.0); MEAN CELL VOLUME 95.5 fl (80.0-105.0); MEAN CORPUSCULAR HEMOGLOBIN 31.7 pg (25.0-35.0); MEAN CORPUSCULAR HGB CONC 33.3 g/dl (31.0-37.0); MEAN PLATELET VOLUME 11.4 fl (7.0-11.0); MONO # 0.5 (0.1-0.6); MONO % 8.1 % (1.0-6.0); RBC 4.19 10^6/uL (3.5-6.1); RED CELL DISTRIBUTION WIDTH 13.2 % (11.5-14.5); WHITE BLOOD COUNT 6.1 10^3/uL (4.5-11.0)
[2018-02-12 12:27] LABS: ALB/GLOB RATIO 1.4 (1.1-1.8); ALBUMIN 4.7 g/dL (3.0-4.8); ALT/SGPT 30 U/L (7-56); AST/SGOT 25 U/L (14-36); BLOOD UREA NITROGEN 13 mg/dL (7-21); CALCIUM 9.5 mg/dL (8.4-10.5); GFR NON-AFRICAN AMERICAN > 60
[2018-02-12 12:35] LABS: TROPONIN I < 0.01 ng/mL
[2018-02-12 13:38] VITALS: BP 100/76; PULSE 78; RESP 16; TEMP 98.3
--- NOTE | 2018-02-12 19:16 | CARD ---
APPROVED REPORT Date of service: 02/12/2018 EKG Measurement Heart [id number] <Conclusion> Sinus bradycardia Otherwise normal ECG
== END 2018-02-12 13:37 | disposition home or self-care (01) ==
LOC: ED 11:33
DX: S06.0X9A Concussion with loss of consciousness of unspecified duration, initial encounter (principal); X58.XXXA Exposure to other specified factors, initial encounter